=== PATIENT | male | born 1985 | race African-American/Black ===

== ENCOUNTER 2019-09-10 17:55 | Emergency (ER) | payer BC ==
[~2019-09-10] VITALS: Ht 182.9 cm; Wt 127.0 kg
[2019-09-10 23:43] LABS: BASOPHILS % 0.7 % (0.0-2.0); EOSINOPHILS % 2.8 % (0.0-5.0); HEMATOCRIT. 46.6 % (42.0-52.0); LYMPHOCYTES % 33.7 % (20.0-50.0); MEAN CORPUSCULAR HEMOGLOBIN 26.1 pg (28.0-32.0); MEAN CORPUSCULAR VOLUME 80.8 fL (80.0-94.0); MEAN PLATELET VOLUME 8.5 fl (7.4-10.4); MONOCYTES % 9.8 % (2.0-8.0); PLATELET 275 x1000/uL (130-400); RED BLOOD CELL COUNT 5.76 mill/uL (4.7-6.1); RED CELL DISTRIBUTION WIDTH 13.5 % (11.6-14.6)
[2019-09-10 23:50] LABS: CHLORIDE 105 mEq/L (98-107)
[2019-09-11 00:32] VITALS: BP 154/99
== END 2019-09-11 00:39 | disposition home or self-care (01) ==
LOC: ER 17:55
DX: R55 Syncope and collapse (principal); F41.0 Panic disorder [episodic paroxysmal anxiety]; J45.909 Unspecified asthma, uncomplicated; F17.200 Nicotine dependence, unspecified, uncomplicated
CPT/HCPCS: 36415; 80053; 84484; 85025; 93005; 93971; 99285